=== PATIENT | male | born 1990 | race Caucasian/White ===

== ENCOUNTER 2019-06-01 01:24 | Observation (INO) ==
[2019-06-01 02:14] LABS: Basophils % 0.3 % (0.0-0.8); Eosinophils # 0.1 10*3/uL (0.0-0.87); Eosinophils % 0.9 % (0.00-10.9); Hematocrit 45.2 VOL% (42.0-52.0); Hemoglobin 15.9 GM/DL (14.0-18.0); Immature Granulocytes % 0.3 %; Immature Granulocytes Absolute 0.04 #; Lymphocytes # 1.5 10*3/uL (1.4-4.0); Lymphocytes % 11.9 % (21.2-54.2); Mean Corpuscular HGB Conc 35.2 GM/DL (32-36); Mean Corpuscular Volume 89.3 FL (87-102); Mean Platelet Volume 9.9 FL (9.6-12.0); Monocytes % 5.2 % (1.7-12.7); Neutrophils % 81.4 % (38.7-73.9); Platelet Count 204 T/CUMM (130-400); Red Blood Count 5.06 MC/CUMM (3.8-5.5); Red Cell Distribution Width 11.9 % (9.3-17.3); White Blood Count 12.2 T/CUMM (4-12)
[2019-06-01 02:21] LABS: Acetaminophen < 2.0 UG/ML (10-30); Salicylate < 2.8 MG/DL (2.8-20)
[2019-06-01 02:23] LABS: Alanine Aminotransferase 41 U/L (16-61); Albumin 3.7 G/DL (3.4-5.0); Alkaline Phosphatase 65 U/L (45-117); Aspartate Amino Transferase 23 U/L (0-37); Blood Urea Nitrogen 9 MG/DL (7-18); Calcium 8.9 MG/DL (8.5-10.1); Estimated Glom Filtration Rate 89 ML/MIN; Glucose 75 MG/DL (74-106); Osmolality,Calculated 274.5 MOS/KG (273-304); Total Protein 6.8 G/DL (6.4-8.3)
[2019-06-01 03:07] LABS: Barbiturates Screen,Urine Negative (Negative); Benzodiazepines Screen,Urine Negative (Negative); Cannabinoid Screen,Urine Positive (Negative); Opiate Screen,Urine Positive (Negative)
[2019-06-01] MEDS ORDERED: ONDANSETRON 4 MG/2 ML VIAL IV PRN (04:15)
[2019-06-01] MEDS ORDERED: LORazepam 2 MG/1 ML VIAL IV PRN (05:46)
[2019-06-01] MEDS: SODIUM CHLORIDE 0.9% 1,000 ML IV SCH (06:30)
[2019-06-01 06:40] LABS: Basophils % 0.4 % (0.0-0.8); Eosinophils # 0.1 10*3/uL (0.0-0.87); Eosinophils % 0.5 % (0.00-10.9); Hematocrit 44.4 VOL% (42.0-52.0); Hemoglobin 15.3 GM/DL (14.0-18.0); Immature Granulocytes % 0.4 %; Immature Granulocytes Absolute 0.04 #; Lymphocytes # 1.9 10*3/uL (1.4-4.0); Mean Corpuscular HGB Conc 34.5 GM/DL (32-36); Mean Platelet Volume 9.7 FL (9.6-12.0); Monocytes % 8.1 % (1.7-12.7); Neutrophils % 71.6 % (38.7-73.9); Platelet Count 198 T/CUMM (130-400); Red Blood Count 4.88 MC/CUMM (3.8-5.5); Red Cell Distribution Width 11.9 % (9.3-17.3); White Blood Count 9.8 T/CUMM (4-12)
[2019-06-01 07:00] LABS: Albumin 3.6 G/DL (3.4-5.0); Bilirubin,Total 0.5 MG/DL (0.2-1.0); Calcium 8.9 MG/DL (8.5-10.1); Osmolality,Calculated 280.1 MOS/KG (273-304); Total Protein 6.7 G/DL (6.4-8.3)
[2019-06-01] MEDS: NICOTINE 21 MG/24 HR PATCH TRANSDERM SCH (09:21)
[2019-06-01] MEDS: ENOXAPARIN 40 MG/0.4 ML SYRINGE SUBCUT SCH (09:21)
[2019-06-01] MEDS: PANTOPRAZOLE 40 MG TABLET PO SCH (09:21)
[2019-06-01 15:02] LABS: Hematocrit 41.9 VOL% (42.0-52.0); Hemoglobin 14.5 GM/DL (14.0-18.0)
[2019-06-01 23:31] LABS: Apearance,Urine CLEAR (Clear); Bilirubin,Urine Negative (Negative); Blood, Urine Negative (Negative); Glucose,Urine (UA) Negative (Negative); Ketones,Urine Negative (Negative); Mucus,Urine Occasional /LPF (Occasional); Nitrite,Urine Negative (Negative); Protein,Urine Negative; RBC,Urine 1 /HPF (0-4); Squamous Epithelial Cell,Urine Occasional /HPF (0-10); Urine Color Yellow (Yellow); Urine Specific Gravity 1.017 (1.001-1.035); Urine Urobilinogen < 2.0 EU/DL (0.2-1.0); WBC,Urine <1 /HPF (0-6)
[2019-06-02] MEDS: SODIUM CHLORIDE 0.9% 1,000 ML IV SCH ×3 (01:11→08:59)
[2019-06-02 08:03] VITALS: BP 133/86
[2019-06-02] MEDS: PANTOPRAZOLE 40 MG TABLET PO SCH (08:52)
[2019-06-02] MEDS: NICOTINE 21 MG/24 HR PATCH TRANSDERM SCH (08:53)
[2019-06-02] MEDS: ENOXAPARIN 40 MG/0.4 ML SYRINGE SUBCUT SCH (08:53)
[2019-06-02 09:26] LABS: Calcium 7.8 MG/DL (8.5-10.1); Osmolality,Calculated 286.8 MOS/KG (273-304)
[2019-06-04 01:06] LABS: Phencyclidine Interpretation Negative.; Phencyclidine-by GC/MS Negative ng/mL (Cutoff: 10)
== END 2019-06-02 11:15 | disposition home or self-care (01) ==
LOC: EDBD → EDUNIT# → N.ED 01:24 → N.EDINP 01:24 → N.4E 05:26
PROVIDERS: ADMIT Internal Medicine; ATTEND Internal Medicine